=== PATIENT | male | born 1945 | race Caucasian/White ===

== ENCOUNTER 2019-05-21 12:30 | Emergency (ER) | payer BC ==
--- NOTE | 2019-05-21 12:35 | PDOC ---
History of Present Illness - General History Source: Patient Exam Limitations: No Limitations - History of Present Illness Initial Comments: 73 year old male with PMH HTN, prior basal cell CA presented to ED for pre- syncopal episode associated with chest pain just [employer]PER[employer] today. Pt reported he recently flew back from [facility] (8-9 hour flight) x5 days ago, and the day after developed a dry cough and nasal congestion. He reported he figured he just had a cold. He reported today while standing in the kitchen he had a wave of "flushing" in which he felt lightheaded, had a large urge to cough, spat out nonbloody sputum, when had a 20 minute bilateral chest pain episode. He reported during this episode he took his BP and pulse with his home BP machine, BP was 90s/50s, HR was 160s. He reported all symptoms resolved and he rechecked his vitals which were now normal, but he called his friend who is physician and recommended he come to the ED for evaluation. ROS General: denied fever, chills, generalized weakness. HEENT: denied sore throat, rhinorrhea, ear pain. Cardiovascular: admitted to chest pain, palpitations, lightheadedness. denied syncope, diaphoresis. Respiratory: admitted to shortness of breath, cough, sputum production. denied hemoptysis. Gastrointestinal: denied abdominal pain, nausea, vomiting, diarrhea, constipation, blood in stool. Genitourinary: denied dysuria, increased urinary frequency, hematuria, urinary incontinence, flank pain. Back: denied back pain. Musculoskeletal: denied joint pain, muscle pain, joint swelling. Neurological: denied headache, dizziness, numbness, tingling, weakness. Integumentary: denied rash, laceration, abrasion. Hematologic/Lymphatic: denied bruising or bleeding. PE Constitutional: Well-nourished, Well-developed, appearing stated age. HEENT: head is normocephalic, atraumatic. EOMI. PERRLA. Neck: supple. Full ROM. Cardiovascular: regularly irregular heart rhythm. no murmurs. no pericardial friction rub. Respiratory: clear to auscultation bilaterally. no crackles, rhonchi or wheezing. no stridor. Gastrointestinal: soft, nontender. normal bowel sounds. no rebound, guarding, masses. Extremities: peripheral pulses intact. no lower extremity edema. no calf tenderness bilaterally. Neurological: CN 2-12 grossly intact. moves all four extremities. Psych: awake, alert, oriented x3. follows commands. answers questions appropriately. <Tracey Brown - Last Filed: 05/21/19 19:01> <Shiv Lopez - Last Filed: 05/21/19 19:20> - General Chief Complaint: Tachycardia Stated Complaint: HAD FAST HEART RATE, COUGH Time Seen by Provider: 05/21/19 12:35 Past History <Tracey Brown - Last Filed: 05/21/19 19:01> <Shiv Lopez - Last Filed: 05/21/19 19:20> - Past Medical History Allergies/Adverse Reactions: Allergies Allergy/AdvReac Type Severity Reaction Status Date / Time No Known Allergies Allergy Verified 05/21/19 12:33 Home Medications: Ambulatory Orders Multivitamin [Multiple Vitamins] 1 each PO DAILY 05/21/19 Valsartan [Diovan] 160 mg PO DAILY 05/21/19 *Physical Exam - Vital Signs Last Vital Signs Temp Pulse Resp BP Pulse Ox 97.6 F 79 16 127/86 98 05/21/19 12:30 05/21/19 18:00 05/21/19 18:00 05/21/19 18:00 05/21/19 18:00 <JessicaShiv - Last Filed: 05/21/19 19:20> ED Treatment Course - LABORATORY CBC & Chemistry Diagram: 05/21/19 13:33 05/21/19 13:33 <Tracey Brown - Last Filed: 05/21/19 19:01> - LABORATORY CBC & Chemistry Diagram: 05/21/19 13:33 05/21/19 13:33 - ADDITIONAL ORDERS Additional order review: Laboratory Results 05/21/19 05/21/19 05/21/19 17:26 13:33 13:33 PT with INR 11.8 INR 1.06 PTT (Actin FS) D-Dimer 632 H Sodium Potassium Chloride Carbon Dioxide Anion Gap BUN Creatinine Est GFR (CKD-EPI)AfAm Est GFR (CKD-EPI)NonAf Random Glucose Calcium Magnesium Total Bilirubin AST ALT Alkaline Phosphatase Troponin I 0.03 Total Protein Albumin 05/21/19 05/21/19 05/21/19 13:33 13:33 13:33 PT with INR INR PTT (Actin FS) 29.6 D-Dimer Sodium 139 Potassium 4.2 Chloride 105 Carbon Dioxide 30 Anion Gap 4 L BUN 20.0 H Creatinine 1.0 Est GFR (CKD-EPI)AfAm 86.76 Est GFR (CKD-EPI)NonAf 74.86 Random Glucose 89 Calcium 9.5 Magnesium 1.9 Total Bilirubin 1.6 H AST 23 ALT 24 Alkaline Phosphatase 69 Troponin I < 0.03 Total Protein 7.1 Albumin 4.2 05/21/19 13:33 RBC 4.78 MCV 98.0 H MCHC 32.5 RDW 12.8 MPV 7.5 Neutrophils % 77.5 Lymphocytes % 11.4 Monocytes % 8.8 Eosinophils % 1.9 Basophils % 0.4 - RADIOLOGY Radiology Studies Ordered: Category Date Time Status CHEST CTA [CT] Stat CT Scan 05/21/19 15:37 Taken <Shiv Lopez - Last Filed: 05/21/19 19:20> Medical Decision Making - Medical Decision Making 73 year old male with above PMH presented to ED for pre-syncopal episode associated with chest pain/productive cough since today. Initial Vital Signs Temp Pulse Resp BP Pulse Ox 97.6 F 86 18 155/98 100 05/21/19 12:30 05/21/19 12:30 05/21/19 12:30 05/21/19 12:30 05/21/19 12:30 Afebrile. No tachycardia. No tachypnea. Hypertensive. No hypoxia on room air. Labs ordered: CBC, CMP, mag, troponin, d-dimer, coags Imaging ordered: CXR Medications ordered: none EKG performed at 1315: rate 84, regular rhythm, GA 254, RBBB, 3 PVC, nonspecific ST changes. -No prior to compare CXR report: Name: [facility]OLOG[facility] Phys: Tracey Brown RESIDENT : [id number] Age: 73 Sex: M [facility] [place] Acct: [id number] Loc: [address] Exam Date: 05/21/19 Status: [place] [address] Unit Number: [id number] EXAM #: TYPE/EXAM: RESULT: [id number] RAD/CHEST PA LAT Chest : Productive cough 2 views of the chest reveal hyperinflation, normal mediastinum and sharp angles. The bones and soft tissues are intact. Impression: No acute chest pathology. Hyperinflation. Reported By: Geovanni Estrada MD 05/21/19 1329 05/21/19 16:03 Laboratory Last Values WBC 6.8 K/mm3 (4.0-10.8) 05/21/19 13:33 RBC 4.78 M/mm3 (4.00-5.60) 05/21/19 13:33 Hgb 15.2 GM/dl (11.7-16.9) 05/21/19 13:33 Hct 46.9 % (35.4-49) 05/21/19 13:33 MCV 98.0 fl (80-96) H 05/21/19 13:33 MCH 31.8 pg (25.7-33.7) 05/21/19 13:33 MCHC 32.5 g/dl (32.0-35.9) 05/21/19 13:33 RDW 12.8 % (11.9-15.9) 05/21/19 13:33 Plt Count 274 K/MM3 (134-434) 05/21/19 13:33 MPV 7.5 fl (7.5-11.1) 05/21/19 13:33 Absolute Neuts (auto) 5.3 K/mm3 05/21/19 13:33 Neutrophils % 77.5 % (42.8-82.8) 05/21/19 13:33 Lymphocytes % 11.4 % (8-40) 05/21/19 13:33 Monocytes % 8.8 % (3.8-10.2) 05/21/19 13:33 Eosinophils % 1.9 % (0-4.5) 05/21/19 13:33 Basophils % 0.4 % (0-2.0) 05/21/19 13:33 PT with INR 11.8 SEC (10.2-13.0) 05/21/19 13:33 INR 1.06 (0.82-1.09) 05/21/19 13:33 PTT (Actin FS) 29.6 SECONDS (25.2-36.5) 05/21/19 13:33 D-Dimer 632 ng/ml (0-500) H 05/21/19 13:33 Sodium 139 mmol/L (136-145) 05/21/19 13:33 Potassium 4.2 mmol/L (3.5-5.1) 05/21/19 13:33 Chloride 105 mmol/L (98-107) 05/21/19 13:33 Carbon Dioxide 30 mmol/L (21-32) 05/21/19 13:33 Anion Gap 4 MMOL/L (8-16) L 05/21/19 13:33 BUN 20.0 mg/dl (7-18) H 05/21/19 13:33 Creatinine 1.0 mg/dl (0.55-1.3) 05/21/19 13:33 Est GFR (CKD-EPI)AfAm 86.76 05/21/19 13:33 Est GFR (CKD-EPI)NonAf 74.86 05/21/19 13:33 Random Glucose 89 mg/dl (74-106) 05/21/19 13:33 Calcium 9.5 mg/dl (8.5-10) 05/21/19 13:33 Magnesium 1.9 mg/dL (1.8-2.4) 05/21/19 13:33 Total Bilirubin 1.6 mg/dl (0.2-1) H 05/21/19 13:33 AST 23 U/L (15-37) 05/21/19 13:33 ALT 24 U/L (13-61) 05/21/19 13:33 Alkaline Phosphatase 69 U/L (45-117) 05/21/19 13:33 Troponin I < 0.03 ng/ml (0.00-0.05) 05/21/19 13:33 Total Protein 7.1 g/dl (6.4-8.2) 05/21/19 13:33 Albumin 4.2 g/dl (3.4-5.0) 05/21/19 13:33 No leukocytosis. No anemia. D-dimer elevated. Imaging ordered: CTA chest No DIONTE. No electrolyte abnormalities. Troponin wnl. 05/21/19 17:58 Repeat trop 0.03 05/21/19 19:01 Pt signed out to night team, pending CTA report and disposition. <Tracey Brown - Last Filed: 05/21/19 19:01> Discharge - Discharge Information Problems reviewed: Yes <Tracey Brown - Last Filed: 05/21/19 19:01> - Admission No <Shiv Lopez - Last Filed: 05/21/19 19:20> - Discharge Information Clinical Impression/Diagnosis: Lightheadedness, Pre-syncope, Palpitations Condition: Stable Disposition: HOME - Follow up/Referral Referrals: Geovanni Mccain [Other] Leonid Guan MD [Staff Physician] - - Patient Discharge Instructions Patient Printed Discharge Instructions: DI for Palpitations Additional Instructions: Return to the emergency department immediately with ANY new, persistent or worsening symptoms Including any chest pain, shortness of breath, lightheadedness, palpitations or any other concerns. The nature of your episode of palpitations is unclear, My concern is that an arrhythmia. You have not had any episodes while you have been monitored in the emergency department, And we would like to keep you overnight in the hospital to continue the monitoring. As you prefer to have this evaluated as an outpatient I recommend that you follow-up with a senior software developer For further evaluation. You MUST call and follow up with your doctor i 2-3 days for further evaluation of your symptoms. Results were discussed with you. Please make sure your doctor reviews the results of your emergency evaluation. Your Emergency Department visit is not complete without a follow up with your doctor.
[2019-05-21 12:37] VITALS: TEMP 97.6; BMI 24.3
--- NOTE | 2019-05-21 12:49 | PDOC ---
Attending Attestation - Resident Resident Name: Tracey Brown - ED Attending Attestation I have performed the following: I have examined & evaluated the patient, The case was reviewed & discussed with the resident, I agree w/resident's findings & plan, Exceptions are as noted - HPI HPI: 05/21/19 12:46 73y M hx of htn, presenst with complaint Of sudden onset of a flushing sensation , coughing, palpitations and chest tightness. Symptoms lasted approximately 15 minutes before resolving. This episode his felt his heart rate noticed it was elevated they checked it on their heart rate monitor and he noticed that his heart rate was 160, After about 10 to 15 minutes the symptoms improved and repeat heart rate was in the 80s. The patient did mention that he flew back from [facility] on Wednesday, He had what seemed like URI symptoms including mild cough and congestion which has since improved. Patient states after the symptoms resolved he is has been asymptomatic including Without chest pain, shortness of breath, dyspnea on exertion, leg swelling, calf pain, nausea, vomiting, back pain, abdominal pain, Lightheadedness, headache, focal neurologic symptoms. - Physicial Exam PE: 05/21/19 13:38 GENERAL: The patient is awake, alert, and fully oriented, Nontoxic - in no acute distress. HEAD: Normocephalic, atraumatic. EYES: extraocular movements intact, sclera anicteric, conjunctiva clear. ENT: Normal voice, Moist mucous membranes. NECK: Normal range of motion, supple LUNGS: Breath sounds equal, clear to auscultation bilaterally. No wheezes, no rhonchi, no rales. HEART: Irregular, normal S1 and S2 without murmur, rub or gallop. ABDOMEN: Soft, nontender, No guarding, no rebound. No CVA tenderness EXTREMITIES: Normal range of motion, no edema. No calf tenderness, negative Homans NEUROLOGICAL: No facial assymetry, Normal speech, PSYCH: Normal mood, normal affect. SKIN: Warm, Dry, normal turgor, - Medical Decision Making 05/21/19 14:05 Differential for this patient's symptoms include arrttymia, acs, pe, 05/21/19 19:03 pts labs were reviewed dimer was selevated cta was obtained awiting read I had an extensive discussion with patient regarding recommendation for admission for telemetry observation. pt states he prefers to go home due to his who has memory problems. he agrees to foolw upwith his pmd and legal aid for follow up monitoring. <Shiv Lopez - Last Filed: 05/21/19 19:15> - Medical Decision Making CT results discussed with pt. Has PCP fu 05/3005/21/19 19:55 <Dequan De Luna - Last Filed: 05/21/19 19:56> Heart Score/ECG Review - ECG Impressions Comment:: 05/21/19 19:05 Twelve-lead EKG was performed and reviewed by me. There is normal sinus rhythm with a normal rate. Rate of 84 First-degree AV block Frequent PVCs Right bundle branch block <Shiv Lopez - Last Filed: 05/21/19 19:15>
[2019-05-21 13:37] LABS: BASO % 0.4 % (0-2.0); EOS % 1.9 % (0-4.5); HEMATOCRIT 46.9 % (35.4-49); HEMOGLOBIN 15.2 GM/dl (11.7-16.9); LYMPH % 11.4 % (8-40); MCH 31.8 pg (25.7-33.7); MCHC 32.5 g/dl (32.0-35.9); MEAN PLT VOLUME 7.5 fl (7.5-11.1); MONO % 8.8 % (3.8-10.2); NEUT % 77.5 % (42.8-82.8); PLATELET COUNT 274 K/MM3 (134-434); RBC 4.78 M/mm3 (4.00-5.60); RDW 12.8 % (11.9-15.9); WHITE BLOOD COUNT 6.8 K/mm3 (4.0-10.8)
--- NOTE | 2019-05-21 13:37 | EKG ---
Test Reason : Blood Pressure : / mmHG Vent. Rate : 084 BPM Atrial Rate : 084 BPM P-R Int : 254 ms QRS Dur : 140 ms QT Int : 400 ms P-R-T Axes : 082 -31 012 degrees QTc Int : 472 ms SINUS RHYTHM WITH 1ST DEGREE A-V BLOCK WITH FREQUENT PREMATURE VENTRICULAR COMPLEXES LEFT AXIS DEVIATION RIGHT BUNDLE BRANCH BLOCK ABNORMAL ECG NO PREVIOUS ECGS AVAILABLE Confirmed by MD Tam, Cresencio ([id number]) on 05/21/2019 1:37:01 PM Referred By: SANJIV Confirmed By:Cresencio Turcios MD
[2019-05-21 13:41] LABS: INR 1.06 (0.82-1.09); PROTHROMBIN TIME (PATIENT) 11.8 SEC (10.2-13.0)
[2019-05-21 13:49] LABS: MAGNESIUM 1.9 mg/dL (1.8-2.4); TOT PROT 7.1 g/dl (6.4-8.2)
[2019-05-21 13:50] LABS: ALBUMIN 4.2 g/dl (3.4-5.0); BILIRUBIN,TOTAL 1.6 mg/dl (0.2-1)
[2019-05-21 15:33] LABS: CALCIUM 9.5 mg/dl (8.5-10); POTASSIUM 4.2 mmol/L (3.5-5.1)
[2019-05-21 19:41] VITALS: BP 124/88; PULSE 77
--- NOTE | 2019-05-21 19:56 | PDOC ---
*Physical Exam - Vital Signs Last Vital Signs Temp Pulse Resp BP Pulse Ox 97.6 F 77 21 H 124/88 100 05/21/19 12:30 05/21/19 19:39 05/21/19 19:39 05/21/19 19:39 05/21/19 19:39 ED Treatment Course - LABORATORY CBC & Chemistry Diagram: 05/21/19 13:33 05/21/19 13:33 - ADDITIONAL ORDERS Additional order review: Laboratory Results 05/21/19 05/21/19 05/21/19 17:26 13:33 13:33 PT with INR 11.8 INR 1.06 PTT (Actin FS) D-Dimer 632 H Sodium Potassium Chloride Carbon Dioxide Anion Gap BUN Creatinine Est GFR (CKD-EPI)AfAm Est GFR (CKD-EPI)NonAf Random Glucose Calcium Magnesium Total Bilirubin AST ALT Alkaline Phosphatase Troponin I 0.03 Total Protein Albumin 05/21/19 05/21/19 05/21/19 13:33 13:33 13:33 PT with INR INR PTT (Actin FS) 29.6 D-Dimer Sodium 139 Potassium 4.2 Chloride 105 Carbon Dioxide 30 Anion Gap 4 L BUN 20.0 H Creatinine 1.0 Est GFR (CKD-EPI)AfAm 86.76 Est GFR (CKD-EPI)NonAf 74.86 Random Glucose 89 Calcium 9.5 Magnesium 1.9 Total Bilirubin 1.6 H AST 23 ALT 24 Alkaline Phosphatase 69 Troponin I < 0.03 Total Protein 7.1 Albumin 4.2 05/21/19 13:33 RBC 4.78 MCV 98.0 H MCHC 32.5 RDW 12.8 MPV 7.5 Neutrophils % 77.5 Lymphocytes % 11.4 Monocytes % 8.8 Eosinophils % 1.9 Basophils % 0.4 Discharge - Discharge Information Problems reviewed: Yes Clinical Impression/Diagnosis: Lightheadedness, Pre-syncope, Palpitations Condition: Stable Disposition: HOME - Follow up/Referral Referrals: Geovanni Mccain [Other] Leonid Guan MD [Staff Physician] - - Patient Discharge Instructions Patient Printed Discharge Instructions: DI for Palpitations Additional Instructions: Return to the emergency department immediately with ANY new, persistent or worsening symptoms Including any chest pain, shortness of breath, lightheadedness, palpitations or any other concerns. The nature of your episode of palpitations is unclear, My concern is that an arrhythmia. You have not had any episodes while you have been monitored in the emergency department, And we would like to keep you overnight in the hospital to continue the monitoring. As you prefer to have this evaluated as an outpatient I recommend that you follow-up with a efficiency clerk For further evaluation. You MUST call and follow up with your doctor i 2-3 days for further evaluation of your symptoms. Results were discussed with you. Please make sure your doctor reviews the results of your emergency evaluation. Your Emergency Department visit is not complete without a follow up with your doctor. - Post Discharge Activity
== END 2019-05-21 20:00 | disposition home or self-care (01) ==
LOC: FER 12:30
DX: R42 Dizziness and giddiness (principal); R55 Syncope and collapse; R00.2 Palpitations; I10 Essential (primary) hypertension; Z85.828 Personal history of other malignant neoplasm of skin
CPT/HCPCS: 36415; 71046-TC-FY; 71275-TC; 80053; 83735; 84484; 85025; 85379; 85610; 85730; 93005; 99285-25